=== PATIENT | female | born 1975 | race African-American/Black ===

== ENCOUNTER 2017-05-22 06:53 | Inpatient (IN) | payer OTHER ==
[~2017-05-22] VITALS: Ht 165.1 cm; Wt 51.4 kg
[2017-05-22 10:56] LABS: MAGNESIUM 1.9 mg/dL (1.8-2.4); PHOSPHOROUS 3.3 mg/dL (2.5-4.9)
[2017-05-22 11:03] LABS: T3 TOTAL 1.16 ng/mL
[2017-05-22 11:05] LABS: CHOLESTEROL/HDL RATIO 2.5; FREE T4 0.85 ng/dL (0.76-1.46); FREE THYROXINE INDEX 2.7 ug/dL (1.4-4.5); T4(THYROXINE) 7.9 ug/dL (4.7-13.3)
[2017-05-22 11:17] LABS: microscopic required? NO
[2017-05-22 11:18] VITALS: BP 128/71
[2017-05-22 11:25] VITALS: Ht 165.1 cm; Wt 51.4 kg
[2017-05-22 11:26] LABS: UA SPECIFIC GRAVITY >=1.030 (1.005-1.035); urine erythrocyte NEGATIVE (NEGATIVE)
[2017-05-22 13:29] LABS: AMPHETAMINE QUAL UR NONE DETECTED (NEG <=1000)
[2017-05-22 16:24] VITALS: BP 135/83
[2017-05-22 17:55] LABS: BASOPHIL % 0.3 % (0-2); PLATELET COUNT 232 x10^3mcL (130-400); RED CELL DISTRIBUTION WIDTH 13.3 % (11.5-14.5)
[2017-05-22 20:53] VITALS: BP 147/91
[2017-05-22 20:55] VITALS: BP 144/69
[2017-05-23 05:47] VITALS: BP 148/92
[2017-05-23 06:27] LABS: CALCIUM 9.2 mg/dL (8.5-10.1); CARBON DIOXIDE 28.8 mmol/L (21-32); CHLORIDE SERUM 104 mmol/L (98-107); CREATININE SERUM 0.6 mg/dL (0.6-1.0); GFR1 > 60 mL/min; GLUCOSE SERUM 93 mg/dL (74-106); POTASSIUM SERUM 4.2 mmol/L (3.5-5.1); SODIUM SERUM 140 mmol/L (136-145)
[2017-05-23 07:01] LABS: BASOPHIL % 0.4 % (0-2); PLATELET COUNT 191 x10^3mcL (130-400); RED CELL DISTRIBUTION WIDTH 13.4 % (11.5-14.5)
[2017-05-23 17:30] VITALS: BP 111/55
[2017-05-23 21:51] VITALS: BP 98/57
[2017-05-24 06:24] VITALS: BP 108/72
[2017-05-24 07:06] LABS: BASOPHIL % 0.3 % (0-2); PLATELET COUNT 184 x10^3mcL (130-400); RED CELL DISTRIBUTION WIDTH 12.9 % (11.5-14.5)
[2017-05-24 09:31] VITALS: BP 113/71
[2017-05-24 13:33] VITALS: BP 132/67
[2017-05-24 17:02] VITALS: BP 131/71
[2017-05-24 21:44] VITALS: BP 122/73
[2017-05-25 05:40] VITALS: BP 110/55
[2017-05-25 06:16] LABS: BASOPHIL % 0.4 % (0-2); PLATELET COUNT 181 x10^3mcL (130-400); RED CELL DISTRIBUTION WIDTH 12.6 % (11.5-14.5)
[2017-05-25 06:46] LABS: AMYLASE 82 U/L (25-115); CALCIUM 9.1 mg/dL (8.5-10.1); CARBON DIOXIDE 26.2 mmol/L (21-32); CHLORIDE SERUM 102 mmol/L (98-107); CREATININE SERUM 0.7 mg/dL (0.6-1.0); GFR1 > 60 mL/min; GLUCOSE SERUM 85 mg/dL (74-106); LIPASE 119 IU/L (73-393); MAGNESIUM 1.9 mg/dL (1.8-2.4); PHOSPHOROUS 3.5 mg/dL (2.5-4.9); POTASSIUM SERUM 3.7 mmol/L (3.5-5.1); SODIUM SERUM 136 mmol/L (136-145)
[2017-05-25 09:42] VITALS: BP 130/76
[2017-05-25] MEDS ORDERED: NORCO1 TA2 PO (15:05)
[2017-05-25 15:38] VITALS: BP 130/76
== END 2017-05-25 16:06 | disposition home or self-care (01) | DRG 500 ==
LOC: ED 06:53 → DU 09:49
PROVIDERS: Family Medicine Sports Medicine; Podiatrist Foot & Ankle Surgery; ADMIT Family Medicine
PROC: 0LQP0ZZ Repair Left Lower Leg Tendon, Open Approach (ICD-10-PCS; 2017-05-23)
PROC: 0QBP0ZZ Excision of Left Metatarsal, Open Approach (ICD-10-PCS; 2017-05-23)
PROC: 0SS Lower Joints, Reposition (ICD-10-PCS; 2017-05-23)
PROC: 0QSM04Z Reposition Left Tarsal with Internal Fixation Device, Open Approach (ICD-10-PCS; principal; 2017-05-23 10:00)
DX: S92.002A Unspecified fracture of left calcaneus, initial encounter for closed fracture (principal); K85.90 Acute pancreatitis without necrosis or infection, unspecified; E43 Unspecified severe protein-calorie malnutrition; Z68.1 Body mass index [BMI] 19.9 or less, adult; S93.122A Dislocation of metatarsophalangeal joint of left great toe, initial encounter; S86.012A Strain of left Achilles tendon, initial encounter; S92.812A Other fracture of left foot, initial encounter for closed fracture; R73.03 Prediabetes; D64.9 Anemia, unspecified; F12.10 Cannabis abuse, uncomplicated; W23.1XXA Caught, crushed, jammed, or pinched between stationary objects, initial encounter; Y92.69 Other specified industrial and construction area as the place of occurrence of the external cause
CPT/HCPCS: 76001; 83880; 84439; 90715; 94150; C1713; J0330; J0690; J1170; J1644; J1885; J2250; J2270; J2405; J2704; J2710; J2765; J3010; J3490; J7030; J7120; Q0092; Q0162

== ENCOUNTER 2018-10-12 06:04 | Day surgery (SDC) | payer OTHER ==
[2018-10-08 11:23] LABS: BASOPHIL % 0.4 % (0-2); PLATELET COUNT 274 x10^3mcL (130-400); RED CELL DISTRIBUTION WIDTH 13.3 % (11.5-14.5)
[2018-10-08 11:38] LABS: CALCIUM 9.2 mg/dL (8.5-10.1); CARBON DIOXIDE 27.8 mmol/L (21-32); CHLORIDE SERUM 102 mmol/L (98-107); CREATININE SERUM 0.9 mg/dL (0.6-1.0); GFR1 > 60 mL/min; GLUCOSE SERUM 88 mg/dL (74-106); POTASSIUM SERUM 4.3 mmol/L (3.5-5.1); SODIUM SERUM 138 mmol/L (136-145)
[~2018-10-12] VITALS: Ht 160 cm; Wt 59.9 kg
[~2018-10-12 06:04] MED LIST: NORCO1 TA2 PO
[2018-10-12 06:21] VITALS: BP 120/72
[2018-10-12 12:37] VITALS: BP 137/66
== END 2018-10-12 12:20 | disposition home or self-care (01) ==
LOC: DS 06:04 → OR 07:30 → DS 12:20
PROVIDERS: Podiatrist Foot & Ankle Surgery
PROC: 0LBP0ZZ Excision of Left Lower Leg Tendon, Open Approach (ICD-10-PCS; 2018-10-12)
PROC: 0L8P0ZZ Division of Left Lower Leg Tendon, Open Approach (ICD-10-PCS; 2018-10-12)
PROC: 0YPB0YZ Removal of Other Device from Left Lower Extremity, Open Approach (ICD-10-PCS; principal; 2018-10-12 07:30)
DX: T84.84XD Pain due to internal orthopedic prosthetic devices, implants and grafts, subsequent encounter (principal); M76.62 Achilles tendinitis, left leg; M62.469 Contracture of muscle, unspecified lower leg; Y83.4 Other reconstructive surgery as the cause of abnormal reaction of the patient, or of later complication, without mention of misadventure at the time of the procedure
CPT/HCPCS: J0690; J1170; J2405; J2704; J3010; J3490; J7120